=== PATIENT | female | born 1985 | race Caucasian/White ===

== ENCOUNTER 2017-02-09 21:56 | Outpatient (CLI) | payer SELFPAY | END 2017-02-09 22:00 | disposition home or self-care (01) | LOC: LDOP 21:56 | PROVIDERS: ATTEND Obstetrics & Gynecology | DX: Z02.9 Encounter for administrative examinations, unspecified (principal) ==

== ENCOUNTER 2017-02-09 22:09 | Emergency (ER) | payer OTHER ==
[~2017-02-09] VITALS: Ht 162.6 cm; Wt 65.0 kg
[2017-02-10 01:20] VITALS: BP 110/69
== END 2017-02-10 01:34 | disposition home or self-care (01) ==
LOC: ED 23:51
DX: O20.0 Threatened abortion (principal); Z3A.19 19 weeks gestation of pregnancy
CPT/HCPCS: 36415; 76805; 81001; 84702; 85025; 86901; 99285